=== PATIENT | male | born 1975 | race Caucasian/White ===

== ENCOUNTER 2017-05-03 00:54 | Emergency (ER) | payer OTHER ==
[~2017-05-03] VITALS: Ht 177.8 cm; Wt 136.1 kg
[~2017-05-03 00:54] MED LIST: COR6 PO; ECOTRIN81 MG PO; LASIX20 MG PO; LISINOPRIL PO; METFORMIN500 M1 PO; MICROZIDE12.5 MG PO; SIMVASTATIN20 M1 PO; SPIRONOLACTONE50 MG PO
[2017-05-03 01:55] VITALS: BP 135/98
== END 2017-05-03 01:55 | disposition other institution (70) ==
LOC: ED 00:54
DX: Z02.89 Encounter for other administrative examinations (principal); I11.0 Hypertensive heart disease with heart failure; E11.9 Type 2 diabetes mellitus without complications; E78.00 Pure hypercholesterolemia, unspecified; I50.9 Heart failure, unspecified

== ENCOUNTER 2017-05-03 00:54 | Emergency (ER) | payer OTHER | END 2017-05-03 01:55 | disposition other institution (70) | LOC: ED 00:54 | DX: Z02.89 Encounter for other administrative examinations (principal) ==

== ENCOUNTER 2020-01-11 14:35 | Inpatient (IN) | payer OTHER ==
[~2020-01-11] VITALS: Ht 177.8 cm; Wt 143.1 kg
[2020-01-11 14:42] VITALS: Ht 177.8 cm; Wt 143.1 kg
[2020-01-11 16:10] LABS: BASOPHIL % 0.2 % (0-2); PLATELET COUNT 248 x10^3mcL (130-400); RED CELL DISTRIBUTION WIDTH 12.6 % (11.5-14.5)
[2020-01-11 16:25] LABS: CALCIUM 9.4 mg/dL (8.5-10.1); CARBON DIOXIDE 27.8 mmol/L (21-32); CREATININE SERUM 1.5 mg/dL (0.7-1.3); POTASSIUM SERUM 5.4 mmol/L (3.5-5.1); TOTAL PROTEIN, SERUM 7.1 g/dL (6.4-8.2)
[2020-01-11 16:27] LABS: ALBUMIN 3.2 g/dL (3.4-5.0)
[2020-01-11] MEDS ORDERED: XARELTO20 M1 PO (18:44)
[2020-01-11 19:01] LABS: CALCIUM 9.2 mg/dL (8.5-10.1); CARBON DIOXIDE 25.9 mmol/L (21-32); CREATININE SERUM 1.4 mg/dL (0.7-1.3); POTASSIUM SERUM 4.8 mmol/L (3.5-5.1)
[2020-01-11 19:09] LABS: CHOLESTEROL/HDL RATIO 3.3
[2020-01-11 19:48] VITALS: BP 92/58
[2020-01-11 20:37] LABS: microscopic required? NO
[2020-01-11 20:44] LABS: urine erythrocyte NEGATIVE (NEGATIVE)
[2020-01-11 21:01] LABS: AMPHETAMINE QUAL UR POSITIVE (See below)
[2020-01-12 05:43] VITALS: BP 134/75
[2020-01-12 06:29] LABS: BASOPHIL % 0.1 % (0-2); PLATELET COUNT 249 x10^3mcL (130-400); RED CELL DISTRIBUTION WIDTH 12.8 % (11.5-14.5)
[2020-01-12 06:59] LABS: CALCIUM 8.8 mg/dL (8.5-10.1); CARBON DIOXIDE 27.2 mmol/L (21-32); CHLORIDE SERUM 95 mmol/L (98-107); GFR1 > 60 mL/min; GLUCOSE SERUM 318 mg/dL (74-106); MAGNESIUM 1.9 mg/dL (1.8-2.4); PHOSPHOROUS 3.3 mg/dL (2.5-4.9); POTASSIUM SERUM 3.7 mmol/L (3.5-5.1); SODIUM SERUM 131 mmol/L (136-145)
[2020-01-12 08:03] VITALS: BP 152/92
[2020-01-12 13:26] VITALS: BP 111/64
[2020-01-12 16:26] VITALS: BP 114/82
[2020-01-12 20:19] VITALS: BP 128/78
[2020-01-13 05:07] VITALS: BP 136/82
[2020-01-13 06:39] LABS: BASOPHIL % 0.4 % (0-2); PLATELET COUNT 231 x10^3mcL (130-400)
[2020-01-13 06:59] LABS: ALBUMIN 2.8 g/dL (3.4-5.0); ALKALINE PHOSPHATASE 140 U/L (46-116); ALT/SGPT 122 U/L (16-63); AST/SGOT 159 U/L (15-37); BILIRUBIN TOTAL 1.2 mg/dL (0.20-1.00); CALCIUM 8.3 mg/dL (8.5-10.1); CARBON DIOXIDE 27.4 mmol/L (21-32); CHLORIDE SERUM 96 mmol/L (98-107); GFR1 > 60 mL/min; GLUCOSE SERUM 240 mg/dL (74-106); MAGNESIUM 2.1 mg/dL (1.8-2.4); PHOSPHOROUS 2.9 mg/dL (2.5-4.9); SODIUM SERUM 134 mmol/L (136-145); TOTAL PROTEIN, SERUM 6.4 g/dL (6.4-8.2)
[2020-01-13 08:25] VITALS: BP 126/70
[2020-01-13] MEDS ORDERED: LANTI SQ (10:24)
[2020-01-13] MEDS ORDERED: ZES10 PO (10:25)
[2020-01-13] MEDS ORDERED: PEP20 PO (10:25)
[2020-01-13] MEDS ORDERED: LIPI10 PO (10:26)
[2020-01-13] MEDS ORDERED: COR6 PO (10:26)
[2020-01-13] MEDS ORDERED: GLUCOSE TEST S1 EACH MC (10:27)
[2020-01-13] MEDS ORDERED: EASY COMFORT ALCO70% TOP (10:28)
[2020-01-13] MEDS ORDERED: ACCU-CHEK GUID1 EAC3 MC (10:34)
[2020-01-13 11:00] VITALS: BP 126/70
== END 2020-01-13 11:24 | disposition home or self-care (01) | DRG 48 ==
LOC: ED 14:35 → MU 17:49 → DU 17:49 → MU 01-12 14:55
PROVIDERS: Emergency Medicine; Student in an Organized Health Care Education/Training Program; ADMIT Family Medicine
DX: E11.43 Type 2 diabetes mellitus with diabetic autonomic (poly)neuropathy (principal); N17.0 Acute kidney failure with tubular necrosis; E11.65 Type 2 diabetes mellitus with hyperglycemia; E44.1 Mild protein-calorie malnutrition; E66.01 Morbid (severe) obesity due to excess calories; I42.9 Cardiomyopathy, unspecified; I11.0 Hypertensive heart disease with heart failure; E87.1 Hypo-osmolality and hyponatremia; E87.5 Hyperkalemia; K31.84 Gastroparesis; F15.10 Other stimulant abuse, uncomplicated; F12.10 Cannabis abuse, uncomplicated; E87.8 Other disorders of electrolyte and fluid balance, not elsewhere classified; I50.32 Chronic diastolic (congestive) heart failure; E78.5 Hyperlipidemia, unspecified; R74.0 Nonspecific elevation of levels of transaminase and lactic acid dehydrogenase [LDH]; K80.20 Calculus of gallbladder without cholecystitis without obstruction; F17.210 Nicotine dependence, cigarettes, uncomplicated; Z68.42 Body mass index [BMI] 45.0-49.9, adult; Z79.82 Long term (current) use of aspirin; Z86.711 Personal history of pulmonary embolism; Z79.01 Long term (current) use of anticoagulants; Z79.84 Long term (current) use of oral hypoglycemic drugs; Z79.899 Other long term (current) drug therapy; Z79.4 Long term (current) use of insulin; Z23 Encounter for immunization
CPT/HCPCS: 82962; 83880; 85378; 90732; G0378; J1815; J7030; J8597; Q0092